=== PATIENT | female | born 1995 | race Caucasian/White ===

== ENCOUNTER 2021-09-07 03:59 | Emergency (ER) | payer OTHER, SELFPAY ==
[2021-09-07] MEDS ORDERED: Ketorolac Tromethamine 30 MG/ML VIAL ONE (04:56)
[2021-09-07] MEDS ORDERED: Ondansetron PF 4 MG/2 ML Vial ONE (04:57)
[2021-09-07 05:20] LABS: MDiff Complete? YES; Manual Diff?? YES; Mean Corpuscular HGB CONC 30.8 g/dL (32.0-36.0); Mean Corpuscular Hemoglobin 25.5 pg (27.0-33.0); Mean Corpuscular Volume 82.9 fl (81.6-98.3); Mean Platelet Volume 10.1 fl (7.4-10.4); Platelet Count 323 10x3/uL (150-450); RBC Distribution Width 14.1 % (11.5-14.5); Red Blood Cell (RBC) Count 5.09 10x6/uL (3.90-5.03); White Blood Cell (WBC) Count 15.5 10x3/uL (3.5-10.5)
[2021-09-07 05:22] LABS: BHCG - Serum Negative (NEGATIVE); Pregs Control Background? CLEAR/WHITE (CLR/WHITE); Pregs Control Bar Appear? YES (CONTROL BAR)
[2021-09-07 05:27] LABS: ALT (SGPT) 32 U/L (8-55); AST (SGOT) 44 U/L (5-34); Albumin 4.5 g/dL (3.5-5.0); Alkaline Phosphatase 89 U/L (40-110); Anion Gap 16 mmol/L (10-20); BUN (Urea Nitrogen) 17 mg/dL (7.0-18.7); Bilirubin, Total 0.7 mg/dL (0.2-1.2); Calc. Creatinine Clearance 0 mL/min (70-130); Calcium 9.6 mg/dL (7.8-10.44); Carbon Dioxide 22 mmol/L (22-29); Chloride 100 mmol/L (98-107); Globulin 3.7 g/dL (2.4-3.5); Glucose 130 mg/dL (70-105); Lipase 17 U/L (8-78); Potassium 3.6 mmol/L (3.5-5.1); Protein, Total 8.2 g/dL (6.0-8.3); Sodium 134 mmol/L (136-145)
[2021-09-07] MEDS ORDERED: Morphine 4 MG/ML VIAL ONE (06:26)
[2021-09-07 06:34] LABS: Band 34 % (5-11); Eosinophils 1 % (0-10); Lymphocytes 4 % (21-51); Monocytes 9 % (0-10); Neutrophil 52 % (42-75)
[2021-09-07 06:35] LABS: Platelet Morphology Comment Appears Adequate
== END 2021-09-07 08:53 | disposition home or self-care (01) ==
LOC: CSHERS 03:59
DX: N83.201 Unspecified ovarian cyst, right side (principal)
CPT/HCPCS: 74177; 76705; 80053; 83690; 84703; 85025; 96374; 96375; J1885; J2270; J2405